=== PATIENT | male | born 1990 | race African-American/Black ===

== ENCOUNTER 2024-12-05 09:20 | Emergency (ER) | payer BC, SELFPAY ==
[2024-12-05 09:25] VITALS: BP 124/85; PULSE 75; TEMP 37.2; O2SAT 100; BMI 21.4
[2024-12-05 09:48] LABS: Influenza Virus A Antigen Negative; Influenza Virus B Antigen Negative; Internal Control Within Normal Limits; SARS-CoV-2 Ag NEGATIVE (NEGATIVE)
--- NOTE | 2024-12-05 10:33 | ED_ITS ---
HPI HPI - General Adult General Chief complaint: Upper Respiratory Infection Stated complaint: FLU SYMPTOMS Time Seen by Provider: 12/05/24 09:23 Source: patient Mode of arrival: walk-in Limitations: no limitations History of Present Illness HPI narrative: Patient presents ED complaining of a 1 week history of sinus congestion fevers and not feeling well. He denies any cough but states he has thick green nasal discharge and congestion. He reports a mild sore throat. He reports some facial pain. He gets some dizziness from his head feeling full. Alert and oriented no acute distress. He has been trying [id number] medications without any relief. He said everybody in his household is sick and some people are getting better but he started with that first and is still sick. He works in a factory. No other complaints at this time. Related Data Previous Rx's ?Medication ?Instructions ?Recorded amoxicillin 875 mg-potassium 1 tab PO BID #14 tabs 12/05/24 clavulanate 125 mg tablet Allergies Allergy/AdvReac Type Severity Reaction Status Date / Time No Known Drug Allergies Allergy Verified 12/05/24 09:29 Opioid HPI Opioid Management Most Recent Opioid Data: No Data to Display Review of Systems ROS Status of ROS 10 or more systems reviewed and unremark able except as noted in history and below PFSH PFSH Social History Little interest or pleasure in doing things: not at all Feeling down, depressed, or hopeless: not at all Exam Narrative Exam Narrative: Time Seen: [] Vital Signs: [Per nurse's notes.] General: [Alert] Skin: [Warm, dry, no rash.] Head: [Normocephalic, atraumatic.] Neck: [Supple, trachea midline.] Eye: [Pupils are equal, round and reactive to light, extraocular movements are intact, injected sclera, watery eyes Ears, nose, mouth and throat: oral mucosa moist. Maxillary sinus tenderness o n palpation Cardiovascular: [Regular rate and rhythm, no murmur.] Respiratory: [Lungs are clear to auscultation, respirations are non-labored, breath sounds are equal.] Chest wall: [No tenderness, no deformity.] Gastrointestinal: [Soft, nontender, non distended, normal bowel sounds.] MSK: 5 out of 5 muscle strength x 4 extremities no calf pain or edema Lymphatics: [No lymphadenopathy.] Psychiatric: [Cooperative, appropriate mood & affect.] Neurological: [Alert and oriented to person, place, time, and situation, no focal neurological deficit observed.] Constitutional Vital Signs, click to edit/add: Last Vital Signs Temp 98.9 F 12/05/24 09:25 Pulse 75 12/05/24 09:25 Resp 18 12/05/24 09:25 BP 124/85 12/05/24 09:25 Pulse Ox 100 12/05/24 09:25 O2 Del Method Room Air 12/05/24 09:25 Course Vital Signs Vital signs: Vital Signs Temperature 98.9 F 12/05/24 09:25 Pulse Rate 75 12/05/24 09:25 Respiratory Rate 18 12/05/24 09:25 Blood Pressure 124/85 12/05/24 09:25 Pulse Oximetry 100 12/05/24 09:25 Oxygen Delivery Method Room Air 12/05/24 09:25 Temperature 98.9 F 12/05/24 09:25 Pulse Rate 75 12/05/24 09:25 Respiratory Rate 18 12/05/24 09:25 Blood Pressure 124/85 12/05/24 09:25 Pulse Oximetry 100 12/05/24 09:25 Oxygen Delivery Method Room Air 12/05/24 09:25 Medical Decision Making MDM Narrative Medical decision making narrative: Patient's labs are negative for COVID and flu. Patient has facial pain with thick green discharge and has been having fevers. Most likely a sinus infection. Patient will be started on antibiotics. Continue decongestants at home. Return to ED if worsening symptoms otherwise follow-up with family doctor. Patient comfortable care plan for home. Differential Diagnosis Differential Diagnosis: Viral syndrome, flu, COVID, sinus infection Lab Data Lab results reviewed: Yes I reviewed the patient's lab results Labs: Lab Results 12/05/24 Range/Units 09:28 Influenza Type A Ag Negative Influenza Type B Ag Negative SARS-CoV-2 Ag (CV2AG) Negative (NEGATIVE) Discharge Plan Discharge Chief Complaint: Upper Respiratory Infection Clinical Impression: Sinusitis Patient Disposition: Home, Self-Care Time of Disposition Decision: 09:52 Condition: Good Mode of Transportation: Private Vehicle Prescriptions / Home Meds: New amoxicillin-pot clavulanate 875-125 mg tablet 1 tab PO BID Qty: 14 0RF Print Language: Ukrainian Instructions: Sinusitis (ED) Discharge Date/Time: 12/05/24 10:04
== END 2024-12-05 10:04 | disposition home or self-care (01) ==
LOC: ER 10:06
PROVIDERS: Emergency Provider Emergency Medicine
DX: J32.9 Chronic sinusitis, unspecified (principal)
CPT/HCPCS: 87804; 87811; 99283